=== PATIENT | male | born 1960 | race Caucasian/White ===

== ENCOUNTER 2017-06-15 05:20 | Day surgery (SDC) | payer OTHER ==
[2017-06-15] MEDS ORDERED: fentaNYL 100 MCG/2 ML SDV IV ONE ×3 (05:21→06:35)
[2017-06-15] MEDS ORDERED: Midazolam 1 MG/ML 2 ML SDV IV ONE ×7 (05:21→06:41)
[2017-06-15] MEDS ORDERED: Dextrose 5%-0.45% NaCl 1,000 ML IV SCH (06:00)
[2017-06-15] MEDS ORDERED: Sodium Chloride 0.9% 10 ML Syringe FLUSH PRN (06:00)
[2017-06-15] MEDS ORDERED: Midazolam 1 MG/ML 2 ML SDV ONE (06:11)
[2017-06-15] MEDS ORDERED: fentaNYL 100 MCG/2 ML SDV ONE (06:12)
--- NOTE | 2017-06-15 08:25 | OR ---
DATE: 06/15/2017 PROCEDURES: Total colonoscopy, narrow-band imaging, and multiple cold snare polypectomies. INSTRUMENT USED: CF-H180 AL Olympus video colonoscope. PREMEDICATIONS: Fentanyl 100 mcg intravenous, Versed 4 mg intravenous. The procedure was done under pulse oximetry, BP recording, and radiation monitor. INDICATION: The patient with previous colonic tubular adenoma. Surveillance colonoscopic exam is done for detection of any polypoid lesions and removal, endoscopic hemostasis therapy if needed. DESCRIPTION OF PROCEDURE: Initial rectal exam was unremarkable. Rigid anoscopy was normal. The colonoscope was passed with ease. Few scattered diverticula were noted in the distal left colon. The scope was passed with ease up to the ileocecal area. Photographs were taken of the cecum identified by landmarks of appendiceal orifice and double-bulged ileocecal folds. In the cecum around the appendiceal orifice, 3-mm sized benign-appearing polyp was noted. NBI views were obtained. Cold snare polypectomy was done. The tissue was retrieved and sent for histopathology. No bleeding was noted from any of the visualized areas at the commencement of examination. No stricture. No vascular ectasia. No large isolated ulcerations seen. No evidence of diffuse inflammatory bowel disease in the form of friability, contact bleeding, or ulcerations. Probing the proximal sides of folds and flexures, using adequate distention and clearing of the stool material, withdrawal of the scope was made. In the proximal sigmoid colon, 3-mm sized benign-appearing polyp was noted. Cold snare polypectomy was done. The tissue was retrieved and sent for histopathology. No bleeding was noted from any of the visualized areas at the completion of examination. IMPRESSION: 1. Diverticulosis. 2. Multiple colonic polyps. The patient tolerated the procedure well. [facility] /[id number]
== END 2017-06-15 08:40 | disposition home or self-care (01) ==
LOC: DL.ENDO 05:20
PROVIDERS: ATTEND Internal Medicine Gastroenterology
DX: Z12.11 Encounter for screening for malignant neoplasm of colon (principal); D12.0 Benign neoplasm of cecum; K63.5 Polyp of colon; K57.30 Diverticulosis of large intestine without perforation or abscess without bleeding; Z85.038 Personal history of other malignant neoplasm of large intestine; Z88.1 Allergy status to other antibiotic agents; Z88.2 Allergy status to sulfonamides
CPT/HCPCS: J2250; J3010; J7042

== ENCOUNTER 2021-05-06 20:49 | Emergency (ER) | payer OTHER ==
[2021-05-06] MEDS ORDERED: Rocuronium 100 MG/10 ML MDV IV ONE (20:50)
[2021-05-06] MEDS ORDERED: Succinylcholine 200 MG/10 ML MDV IV ONE (20:50)
[2021-05-06] MEDS ORDERED: Propofol 200 MG/20 ML SDV IV ONE (20:50)
[2021-05-06 21:22] LABS: ANION GAP 12.7 mEq/L (7-13); CHLORIDE,CL 104 mmol/L (98-107); SODIUM,NA 138 mmol/L (136-145)
[2021-05-06 21:45] LABS: CORONAVIRUS COVID-19 NAA NEGATIVE (NEGATIVE)
[2021-05-06 22:00] LABS: BASE EXCESS ARTERIAL -4 mmol/L ((-2)-(+3)); BICARBONATE,ARTERIAL 22.5 mmol/L (22-26); O2 DELIVERY DEVICE RESUSCITATION BAG; O2 SATURATION ARTERIAL 98 % (95-100); PCO2 ARTERIAL 50 mmHg (35-45); PO2 ARTERIAL 117 mmHg (70-100)
[2021-05-06 22:02] LABS: ALLEN TEST pos; O2 FLOW RATE 60
[2021-05-06] MEDS ORDERED: levETIRAcetam in NaCl (iso-os) 1,000 MG in Premix Bag 1 BAG IV ONE ×4 (22:19→22:24)
[2021-05-06] MEDS ORDERED: fentaNYL 100 MCG/2 ML SDV IVPUSH ONE (22:35)
[2021-05-06] MEDS ORDERED: MANNITOL IV ONE (23:05)
== END 2021-05-07 00:16 ==
LOC: DL.ED 20:49
DX: I60.9 Nontraumatic subarachnoid hemorrhage, unspecified (principal); Z88.1 Allergy status to other antibiotic agents; Z20.822 Contact with and (suspected) exposure to COVID-19
CPT/HCPCS: 0240U; 31500; 36415; 36600; 43752; 51702; 70450; 71045; 71250; 74176; 80053; 81001; 82803; 82947; 83605; 84484; 85025; 87040; 93005; 96365; 96375; 99285; J0330; J1953; J2704; J3010